=== PATIENT | female | born 1990 | race Caucasian/White ===

== ENCOUNTER 2016-05-22 06:19 | Inpatient (IN) | payer MEDICAID ==
[2016-05-22] VITALS (15 sets, daily range): BP systolic 113–137; RESP 12–26; TEMP 97.4–98; BMI 31.5
[~2016-05-22] VITALS: Ht 165.1 cm; Wt 85.7 kg
[2016-05-22] MEDS ORDERED: FAMOTIDINE 20 MG INJ IV ONE (07:15)
[2016-05-22] MEDS ORDERED: CEFAZOLIN (LD/OB) 100 ML IV ONE (07:15)
[2016-05-22] MEDS ORDERED: LIDOCAINE 1% BUFFERED 1 ML SYR INTRADERM PRN (07:15)
[2016-05-22] MEDS ORDERED: METOCLOPRAMIDE 10 MG/2 ML VIAL IV PUSH ONE (07:15)
[2016-05-22] MEDS ORDERED: DIPHENHYDRAMINE 50 MG/ML VIAL IV PRN (07:25)
[2016-05-22] MEDS ORDERED: MEPERIDINE 25 MG/ML IV PRN (07:25)
[2016-05-22] MEDS ORDERED: OXYCODONE 5 MG TAB PO PRN (07:25)
[2016-05-22] MEDS ORDERED: NALOXONE 0.4 MG/ML AMP IV PRN (07:25)
[2016-05-22] MEDS ORDERED: MORPHINE 4 MG/ML SYR IV PRN ×2 (07:25)
[2016-05-22] MEDS ORDERED: SALINE FLUSH 10 ML FLUSH PRN (07:25)
[2016-05-22] MEDS ORDERED: ONDANSETRON 4 MG VIAL IV PRN ×3 (07:25→08:10)
[2016-05-22] MEDS ORDERED: BUTORPHANOL 1 MG/ML VIAL IV PRN (07:25)
[2016-05-22] MEDS ORDERED: DILAUDID 1 MG/ML AMP IV PRN (07:25)
[2016-05-22] MEDS ORDERED: MORPHINE 2 MG/ML SYR IV PRN ×2 (07:25)
[2016-05-22] MEDS ORDERED: PROMETHAZINE 25 MG/ML VIAL IV PRN (07:25)
[2016-05-22] MEDS: SALINE FLUSH 10 ML FLUSH SCH ×2 (08:00→19:21)
[2016-05-22] MEDS ORDERED: TDaP 0.5 ML VIAL IM.VACC ONE (08:10)
[2016-05-22] MEDS ORDERED: OXYTOCIN 15 UNITS/250 ML NS 250 ML IV SCH (08:10)
[2016-05-22] MEDS ORDERED: MEASLES,MUMPS,RUBELLA VAC SUBQ.VACC ONE (08:10)
[2016-05-22] MEDS: DOCUSATE SOD 100 MG CAP PO SCH (09:00)
[2016-05-22] MEDS: LACT RINGERS 1,000 ML IV SCH ×2 (10:05→17:53)
[2016-05-22] MEDS ORDERED: ATROPINE 0.4 MG/ML VIAL IV ONE (10:06)
[2016-05-22] MEDS ORDERED: OXYTOCIN 10 UNITS/ML VIAL IV ONE (10:06)
[2016-05-22] MEDS: KETOROLAC 30 MG/ML VIAL IV SCH ×2 (10:27→16:18)
[2016-05-22] MEDS: CEFAZOLIN 2,000 MG in SODIUM CHLORIDE 0.9% 100 ML IV SCH (16:19)
[2016-05-22] MEDS: FLUTICASONE 0.05% NA BTL NARE EACH SCH (18:52)
[2016-05-23] MEDS: KETOROLAC 30 MG/ML VIAL IV SCH ×2 (00:25→05:09)
[2016-05-23] MEDS: CEFAZOLIN 2,000 MG in SODIUM CHLORIDE 0.9% 100 ML IV SCH (00:26)
[2016-05-23 01:07] VITALS: BP_SYST 134; RESP 18; TEMP 98.5
[2016-05-23] MEDS: LACT RINGERS 1,000 ML IV SCH (02:22)
[2016-05-23] MEDS: SODIUM CHLORIDE 0.9% FLUSH BAG 500 ML IV SCH (05:08)
[2016-05-23 05:14] VITALS: BP_SYST 144; RESP 16; TEMP 98
[2016-05-23] MEDS: SALINE FLUSH 10 ML FLUSH SCH ×2 (08:00→20:00)
[2016-05-23] MEDS: DOCUSATE SOD 100 MG CAP PO SCH (08:34)
[2016-05-23 09:35] VITALS: BP_SYST 142; RESP 20; TEMP 98.2
[2016-05-23] MEDS: OXYCODONE/APAP 5/325 TAB PO PRN ×4 (09:52→23:37)
[2016-05-23] MEDS: Ibuprofen 600 MG TAB PO SCH ×3 (11:42→23:37)
[2016-05-23] MEDS ORDERED: TDaP 0.5 ML VIAL IM.VACC ONE ×2 (16:08→16:25)
[2016-05-23 17:31] VITALS: BP_SYST 137; TEMP 98.1
[2016-05-23 17:32] VITALS: RESP 18
[2016-05-23] MEDS: FLUTICASONE 0.05% NA BTL NARE EACH SCH (22:41)
[2016-05-24] MEDS: SODIUM CHLORIDE 0.9% FLUSH BAG 500 ML IV SCH (01:22)
[2016-05-24] MEDS: Ibuprofen 600 MG TAB PO SCH ×4 (05:12→23:21)
[2016-05-24] MEDS: OXYCODONE/APAP 5/325 TAB PO PRN ×3 (05:13→16:58)
[2016-05-24 05:21] VITALS: BP_SYST 140; RESP 16; TEMP 97.5
[2016-05-24] MEDS: SALINE FLUSH 10 ML FLUSH SCH ×2 (07:26→22:31)
[2016-05-24 09:11] VITALS: BP_SYST 148; TEMP 98.2
[2016-05-24 09:12] VITALS: RESP 24
[2016-05-24] MEDS: DOCUSATE SOD 100 MG CAP PO SCH (10:01)
[2016-05-24] MEDS: FLUTICASONE 0.05% NA BTL NARE EACH SCH (10:09)
[2016-05-24] MEDS ORDERED: Flu Vaccine Quadrivalent 60 MCG/0.5 ML IM.VACC ONE (17:10)
[2016-05-24] MEDS ORDERED: MISSING DOSE XX ONE (17:10)
[2016-05-24] MEDS: SERTRALINE 50 MG TAB PO SCH (18:06)
[2016-05-24 18:22] VITALS: BP_SYST 144; RESP 18; TEMP 97.7
[2016-05-25] MEDS: OXYCODONE/APAP 5/325 TAB PO PRN ×3 (01:49→11:54)
[2016-05-25] MEDS: Ibuprofen 600 MG TAB PO SCH ×2 (05:30→11:55)
[2016-05-25 05:58] VITALS: BP_SYST 144; RESP 18; TEMP 98.1
[2016-05-25] MEDS: SODIUM CHLORIDE 0.9% FLUSH BAG 500 ML IV SCH (06:00)
[2016-05-25] MEDS: SERTRALINE 50 MG TAB PO SCH (09:15)
[2016-05-25] MEDS: SALINE FLUSH 10 ML FLUSH SCH (09:15)
[2016-05-25] MEDS: DOCUSATE SOD 100 MG CAP PO SCH (09:15)
[2016-05-25 09:33] VITALS: BP_SYST 130; RESP 18; TEMP 97.7
[2016-05-25 11:24] VITALS: BP_SYST 130; RESP 18; TEMP 97.7
== END 2016-05-25 12:10 | disposition home or self-care (01) | DRG 766 ==
LOC: LD 06:19 → OB 10:36
PROVIDERS: ADMIT Obstetrics & Gynecology; ATTEND Obstetrics & Gynecology
PROC: 10D00Z1 Extraction of Products of Conception, Low, Open Approach (ICD-10-PCS; principal; 2016-05-22)
CPT/HCPCS: 36415; 85025